=== PATIENT | female | born 1965 | race Caucasian/White ===

== ENCOUNTER 2016-07-29 09:55 | Inpatient (IN) | payer BC ==
[2016-08-03] MEDS ORDERED: FERROUS SULFAT325 MG PO (12:55)
[2016-08-03] MEDS ORDERED: TOPAMAX25 MG PO (12:55)
[2016-08-03] MEDS ORDERED: PROBIOTIC1 EAC1 PO (12:55)
[2016-08-03] MEDS ORDERED: LOPERAMIDE2 MG PO (12:56)
[2016-08-03] MEDS ORDERED: FLAGYL500 MG PO (12:56)
[2016-08-03] MEDS ORDERED: CIPRO500 MG PO (12:56)
[2016-08-03] MEDS ORDERED: PREDNISONE20 MG PO (12:58)
== END 2016-08-03 13:00 | disposition home or self-care (01) | DRG 386 ==
LOC: ER 09:55 → MED 12:21
PROVIDERS: ADMIT Internal Medicine
DX: K51.911 Ulcerative colitis, unspecified with rectal bleeding (principal); D62 Acute posthemorrhagic anemia; E87.6 Hypokalemia; G43.909 Migraine, unspecified, not intractable, without status migrainosus; F32.9 Major depressive disorder, single episode, unspecified; Z79.899 Other long term (current) drug therapy; Z88.5 Allergy status to narcotic agent; Z88.0 Allergy status to penicillin; Z82.61 Family history of arthritis; Z82.49 Family history of ischemic heart disease and other diseases of the circulatory system
CPT/HCPCS: 36415; 87507; J1200; J2550; Q9967

== ENCOUNTER 2016-07-29 09:55 | Emergency (ER) | payer BC | END 2016-07-29 12:20 | disposition critical access hospital (66) | LOC: ER 09:55 | DX: K51.90 Ulcerative colitis, unspecified, without complications (principal); E87.6 Hypokalemia; G43.909 Migraine, unspecified, not intractable, without status migrainosus; Z79.899 Other long term (current) drug therapy; Z88.5 Allergy status to narcotic agent; Z88.0 Allergy status to penicillin | CPT/HCPCS: 36415; 96361; 96365; 96366; 96375; 96376; J2550; Q9967 ==